=== PATIENT | female | born 1960 | race Caucasian/White ===

== ENCOUNTER → 2017-01-18 | Outpatient (CLI) | payer BC ==
[~2017-01-18] MED LIST: BUTA1CAP20 PO; HYDR12.56 PO; LEVO25TA5 PO; LOSA100T65 PO; NAPR1TAB48 PO
[2017-01-18 16:26] LABS: THYROID STIMULATING HORMONE 1.23 uIu/ml (0.300-4.500)
== END | disposition home or self-care (01) ==
LOC: C.LAB1850 14:15
DX: E03.8 Other specified hypothyroidism (principal)

== ENCOUNTER → 2018-01-27 | Outpatient (CLI) | payer OTHER | END | disposition home or self-care (01) | LOC: C.LAB1850 17:23 | DX: E03.8 Other specified hypothyroidism (principal); N95.1 Menopausal and female climacteric states ==